=== PATIENT | female | born 1955 | race Caucasian/White ===

== ENCOUNTER 2021-07-04 18:56 | Emergency (ER) | payer OTHER, SELFPAY ==
[~2021-07-04] VITALS: Ht 162.6 cm; Wt 95.3 kg
[2021-07-04 19:47] VITALS: BP_SYST 150
--- NOTE | 2021-07-04 19:50 | NUR ---
Patient triaged and placed in waiting room. VSS and patient appears in no acute distress at this time. Accompanied by , awaiting available bed, and MD notified of need for MSE.
[2021-07-04 21:05] LABS: BASOPHILS # (AUTO) 0.1 K/uL (0.0-0.2); BASOPHILS % (AUTO) 0.9 % (0.0-2.0); EOSINOPHILS # (AUTO) 0.2 K/uL (0.0-0.4); EOSINOPHILS % (AUTO) 3.7 % (0.0-4.0); HEMATOCRIT 41.7 % (36-48); LYMPHOCYTES # (AUTO) 1.9 K/uL (1.0-5.5); LYMPHOCYTES % (AUTO) 31.8 % (20.5-51.5); MEAN CORPUSCULAR HEMOGLOBIN 32 pg (27-31); MEAN CORPUSCULAR HGB CONC 34 % (32-36); MEAN CORPUSCULAR VOLUME 95 fL (79.0-98.0); MONOCYTES # (AUTO) 0.6 K/uL (0.0-1.0); MONOCYTES % (AUTO) 10.2 % (1.7-9.3); NEUTROPHILS # (AUTO) 3.2 K/uL (1.8-7.7); NEUTROPHILS % (AUTO) 53.4 % (40.0-70.0); PLATELET COUNT (AUTO) 248 K/uL (130-430); RED BLOOD CELL COUNT(AUTO) 4.39 MIL/uL (4.2-6.2); RED CELL DISTRIBUTION WIDTH 13.5 % (9.0-15.0)
--- NOTE | 2021-07-04 21:12 | NUR ---
Patient ambulatory to bed 5 for evaluation and treatment
--- NOTE | 2021-07-04 21:20 | NUR ---
Patient reports having palpitations since 1600 while walking around in [employer] progressively getting worse but reports stopping upon arrival to ed. Patient denies any shortness of breath or chest pain. Patient speaking full sentences. No acute distress noted. Will continue to monitor.
[2021-07-04 21:28] LABS: CALCIUM 9.1 mg/dL (8.4-11.0); CREATININE 0.64 mg/dL (0.55-1.30); POTASSIUM 4.3 mmol/L (3.5-5.1)
[2021-07-04 21:37] LABS: ALBUMIN 3.7 g/dL (3.4-4.8); TOTAL BILIRUBIN 0.5 mg/dL (0.0-1.0)
--- NOTE | 2021-07-04 22:28 | NUR ---
ER Dr. TINAJERO at bedside examining patient.
--- NOTE | 2021-07-04 22:40 | NUR ---
consent signed for CT Scan.
[2021-07-04] MEDS ORDERED: IOHEXOL 350 mgI/mL, 150 ML INFUS..BTL IV ONE (22:44)
[2021-07-04] MEDS ORDERED: NACL 0.9% 1,000 ML IV ONE (22:45)
--- NOTE | 2021-07-04 22:48 | NUR ---
# 20 gauge angiocath placed to LAC. Use of asceptic technique. Opsite placed over site. Blood return noted. Blood for lab drawn from site. Flushed with 10 cc of normal saline. No evidence of infiltration noted. Patient tolerated well.
--- NOTE | 2021-07-04 22:49 | NUR ---
Patient off unit to CT Scan with [employer].
--- NOTE | 2021-07-04 23:00 | NUR ---
Medicated per MD orders. IVF infusing with no s/s of infiltration at this time. Will cont to monitor
--- NOTE | 2021-07-05 00:04 | NUR ---
Dr. Hansen at bedside discussing results
[2021-07-05 00:25] VITALS: BP_SYST 132
--- NOTE | 2021-07-05 00:25 | NUR ---
Patient given written and verbal discharge instructions and verbalizes understanding. ER MD discussed with patient the results and treatment provided. Patient in stable condition. ID arm band removed. IV catheter removed intact and dressing applied, no active bleeding. No Rx given. Patient educated on pain management and to follow up with PMD. Pain Scale 0/10 Opportunity for questions provided and answered.
== END 2021-07-05 00:25 | disposition home or self-care (01) ==
LOC: SED 18:56
DX: R00.2 Palpitations (principal)
CPT/HCPCS: 36415; 71045; 71275; 76376; 80053; 83880; 84484; 85025; 85379; 93005; 96360; 96361; 99285; J7030; Q9967